=== PATIENT | male | born 2005 | race Two or more races ===

== ENCOUNTER → 2025-03-02 | Outpatient (CLI) | payer MEDICAID, SELFPAY ==
--- NOTE | 2025-03-02 16:06 | XR_ITS ---
Examination: PA lateral chest 2 views TECHNIQUE: Upright PA and lateral chest 2 views Date and time: March 02, 2025 at 1715 hours Comparison July 21, 2015 INDICATIONS: Diagnosis coccidiomycosis 2021. FINDINGS: 6 mm probable granuloma in the left lower lobe Normal heart size No pneumonia Intact osseous structures IMPRESSION: No pneumonia identified
== END | disposition home or self-care (01) ==
PROVIDERS: PCP Student in an Organized Health Care Education/Training Program; Referring Provider Student in an Organized Health Care Education/Training Program; Visit Provider Student in an Organized Health Care Education/Training Program
DX: B38.0 Acute pulmonary coccidioidomycosis (principal)
CPT/HCPCS: 71046